=== PATIENT | male | born 1975 | race Caucasian/White ===

== ENCOUNTER 2021-12-24 21:00 | Emergency (ER) | payer SELFPAY ==
[2021-12-24 21:00] VITALS: BP 132/93
== END 2021-12-24 23:14 | disposition home or self-care (01) ==
LOC: ER 21:00
DX: S09.93XA Unspecified injury of face, initial encounter (principal); S05.10XA Contusion of eyeball and orbital tissues, unspecified eye, initial encounter; F10.129 Alcohol abuse with intoxication, unspecified; Y90.9 Presence of alcohol in blood, level not specified; Y04.8XXA Assault by other bodily force, initial encounter; Y93.89 Activity, other specified; Y92.89 Other specified places as the place of occurrence of the external cause; Y99.8 Other external cause status